=== PATIENT | female | born 1965 | race Native Hawaiian/Other Pacific Islander ===

== ENCOUNTER 2018-03-17 11:43 | Outpatient (CLI) | payer OTHER | END 2018-03-17 20:01 | disposition home or self-care (01) | LOC: US 11:43 | DX: M79.652 Pain in left thigh (principal) ==

== ENCOUNTER → 2019-06-11 06:44 | Outpatient (CLI) | payer OTHER ==
[~2019-06-11 06:44] MED LIST: CITALOPRAM40 MG PO; MOBIC15 MG PO
== END | disposition home or self-care (01) ==
LOC: AMB 06:44
DX: Z04.1 Encounter for examination and observation following transport accident (principal); M25.562 Pain in left knee; M25.561 Pain in right knee

== ENCOUNTER 2019-06-11 09:25 | Emergency (ER) | payer OTHER ==
[~2019-06-11] VITALS: Ht 162.6 cm; Wt 70.3 kg
[2019-06-11 09:44] VITALS: TEMP 97.5
[2019-06-11 10:21] LABS: PLATELET COUNT 254 K/uL (152-353)
[2019-06-11 10:25] LABS: POTASSIUM 3.5 mmol/L (3.6-5.2)
[2019-06-11] MEDS ORDERED: CITALOPRAM40 MG PO (11:08)
[2019-06-11] MEDS ORDERED: MOBIC15 MG PO (11:08)
[2019-06-11 12:14] LABS: PARTIAL THROMBOPLASTIN TIME 25.9 SECONDS (24.5-33.6)
[2019-06-11 12:15] VITALS: BP 170/77
== END 2019-06-11 12:16 | disposition short-term general hospital (02) ==
LOC: ED 09:25
PROVIDERS: Family Medicine
DX: S06.5X0A Traumatic subdural hemorrhage without loss of consciousness, initial encounter (principal); V89.2XXA Person injured in unspecified motor-vehicle accident, traffic, initial encounter
CPT/HCPCS: 36415; 80053; 85027; 85610; 85730; 99284; 99285

== ENCOUNTER 2022-06-14 10:18 | Outpatient (CLI) | payer OTHER | END 2022-06-14 20:30 | disposition home or self-care (01) | LOC: MAMMO 10:18 | PROVIDERS: ATTEND Nurse Practitioner Family | DX: Z12.31 Encounter for screening mammogram for malignant neoplasm of breast (principal) ==

== ENCOUNTER 2022-07-30 08:24 | Outpatient (CLI) | payer OTHER | END 2022-07-30 22:18 | disposition home or self-care (01) | LOC: MRI 08:24 | PROVIDERS: ATTEND Internal Medicine | DX: M54.2 Cervicalgia (principal); M48.02 Spinal stenosis, cervical region; M47.892 Other spondylosis, cervical region ==